=== PATIENT | female | born 1930 | race Caucasian/White ===

== ENCOUNTER 2016-11-05 09:23 | Inpatient (IN) | payer OTHER ==
[~2016-11-05] VITALS: Ht 165.1 cm; Wt 117.3 kg
[~2016-11-05 09:23] MED LIST: ARICEPT10 MG PO; K-DUR20 MEQ PO; KEPPRA250 MG PO; LOPRESSOR25 MG PO; NAMENDA10 MG PO; PLAVIX75 MG PO; PRINIVIL10 MG PO; WELCHOL625 MG PO
[2016-11-05] MEDS ORDERED: DONEPEZIL HCL10 MG PO (10:04)
[2016-11-05 10:06] LABS: HEMATOCRIT 32.5 % (36.0-46.0); MCH 27.3 PG (29.0-34.0); MCHC 30.5 G/DL (30.0-36.0); MCV 89.8 FL (83-99); MEAN PLAT.VOLUME 10.8 uM^3 (9.5-12.4); PLATELET COUNT 212 K/uL (156-360); RBC DIS.WIDTH-CV 13.1 % (11.8-14.6); RBC DIS.WIDTH-SD 42.9 % (39-53); RED BLOOD COUNT 3.62 M/uL (3.80-5.20); WHITE BLOOD COUNT 5.8 K/uL (4.1-10.2)
[2016-11-05 10:16] LABS: CHLORIDE 106 mEq/L (99-109); POTASSIUM 4.2 mEq/L (3.7-5.4); SODIUM 141 mEq/L (136-147)
[2016-11-05 10:18] LABS: GLUCOSE 122 mg/dL (70-99)
[2016-11-05 10:19] LABS: ANION GAP 10 MEQ/L (2-14)
[2016-11-05 10:20] LABS: TOTAL BILIRUBIN 0.3 mg/dL (0.0-1.0)
[2016-11-05 10:22] LABS: ALKALINE PHOSPHATASE 92 IU/L (3-129); GFR ESTIMATE (CALCULATED) 56 mL/min/
[2016-11-05 10:23] LABS: UREA NITROGEN (BUN) 23 mg/dL (9-23)
[2016-11-05 10:28] LABS: TROP-I INTERPRETATION NEGATIVE; TROPONIN-I < 0.01 ng/mL (0.0-0.30)
[2016-11-05] MEDS ORDERED: RASAGILINE MESYL1 MG PO (12:09)
[2016-11-05] MEDS ORDERED: CENTRUM SILVER1 EAC4 PO (12:10)
[2016-11-05] MEDS ORDERED: TYLENOL EXTRA500 MG PO (12:11)
[2016-11-05 14:15] VITALS: BP 120/60
[2016-11-05 16:46] VITALS: BP 137/63
[2016-11-05 19:44] VITALS: BP 99/52
[2016-11-06 06:22] LABS: EOSINOPHIL (%) 2.7 % (0-5); EOSINOPHIL COUNT 0.1 K/uL (0-0.3); HEMATOCRIT 27.1 % (36.0-46.0); IMMATURE GRANULOCYTE (%) 0.2 % (0.0-0.7); INSTRUMENT ABS NEUTROPHIL CT 2.9 K/uL; MCH 28.8 PG (29.0-34.0); MCHC 31.7 G/DL (30.0-36.0); MCV 90.6 FL (83-99); MEAN PLAT.VOLUME 11.2 uM^3 (9.5-12.4); MONOCYTE COUNT 0.4 K/uL (0-0.8); NEUTROPHIL (%) 65.7 % (45-76); NEUTROPHIL COUNT 2.9 K/uL (1.8-6.4); PLATELET COUNT 194 K/uL (156-360); RBC DIS.WIDTH-CV 13.3 % (11.8-14.6); RBC DIS.WIDTH-SD 43.8 % (39-53); RED BLOOD COUNT 2.99 M/uL (3.80-5.20); WHITE BLOOD COUNT 4.4 K/uL (4.1-10.2)
[2016-11-06 07:02] LABS: ALKALINE PHOSPHATASE 79 IU/L (3-129); ANION GAP 6 MEQ/L (2-14); CHLORIDE 104 MEQ/L (99-109); GFR ESTIMATE (CALCULATED) 38 mL/min/; GLUCOSE 102 mg/dL (70-99); IRON 20 MCG/DL (35-150); SAMPLE HEMOLYSIS CHECK 0; SAMPLE ICTERIC CHECK 0; SAMPLE LIPEMIA CHECK 0; SODIUM 139 MEQ/L (136-147); TOTAL BILIRUBIN 0.3 MG/DL (0.0-1.0); UREA NITROGEN (BUN) 33 mg/dL (9-23)
[2016-11-06 07:54] LABS: FERRITIN 219 NG/ML (10-291)
[2016-11-06 09:07] VITALS: BP 132/60
[2016-11-06 12:01] VITALS: BP 185/71
[2016-11-06 16:31] VITALS: BP 183/76
[2016-11-06 20:00] VITALS: BP 154/64
[2016-11-06 23:50] VITALS: BP 153/67
[2016-11-07] VITALS (8 sets, daily range): BP systolic 110–182; BP diastolic 60–80
[2016-11-07 09:52] LABS: HEMATOCRIT 34.2 % (36.0-46.0); MCH 27.3 PG (29.0-34.0); MCHC 30.7 G/DL (30.0-36.0); MCV 89.1 FL (83-99); PLATELET COUNT 206 K/uL (156-360); RBC DIS.WIDTH-CV 13.2 % (11.8-14.6); RBC DIS.WIDTH-SD 43.2 % (39-53); WHITE BLOOD COUNT 5.9 K/uL (4.1-10.2)
[2016-11-07 09:56] LABS: RED BLOOD COUNT 3.84 M/uL (3.80-5.20)
[2016-11-07 10:25] LABS: TROP-I INTERPRETATION NEGATIVE; TROPONIN-I 0.01 ng/mL (0.0-0.30)
[2016-11-07 10:32] LABS: ALKALINE PHOSPHATASE 90 IU/L (3-129); ANION GAP 7 MEQ/L (2-14); CHLORIDE 103 MEQ/L (99-109); GLUCOSE 112 mg/dL (70-99); SAMPLE HEMOLYSIS CHECK 0; SAMPLE ICTERIC CHECK 0; SAMPLE LIPEMIA CHECK 0; SODIUM 136 MEQ/L (136-147); UREA NITROGEN (BUN) 16 mg/dL (9-23)
[2016-11-07 10:37] LABS: GFR ESTIMATE (CALCULATED) > 59 mL/min/; TOTAL BILIRUBIN 0.5 MG/DL (0.0-1.0)
[2016-11-08 01:50] VITALS: BP 141/62
[2016-11-08 04:14] VITALS: BP 121/58
[2016-11-08 05:47] LABS: HEMATOCRIT 29.8 % (36.0-46.0); MCH 27.6 PG (29.0-34.0); MCHC 31.2 G/DL (30.0-36.0); MCV 88.4 FL (83-99); MEAN PLAT.VOLUME 11.3 uM^3 (9.5-12.4); PLATELET COUNT 199 K/uL (156-360); RBC DIS.WIDTH-CV 13.6 % (11.8-14.6); RBC DIS.WIDTH-SD 44.2 % (39-53); RED BLOOD COUNT 3.37 M/uL (3.80-5.20); WHITE BLOOD COUNT 5.6 K/uL (4.1-10.2)
[2016-11-08 07:58] LABS: ALKALINE PHOSPHATASE 81 IU/L (3-129); ANION GAP 10 MEQ/L (2-14); CHLORIDE 104 MEQ/L (99-109); GFR ESTIMATE (CALCULATED) 56 mL/min/; GLUCOSE 97 mg/dL (70-99); MAGNESIUM 1.4 mg/dl (1.3-2.7); POTASSIUM 3.9 MEQ/L (3.7-5.4); SAMPLE HEMOLYSIS CHECK 0; SAMPLE ICTERIC CHECK 0; SAMPLE LIPEMIA CHECK 0; SODIUM 135 MEQ/L (136-147); TOTAL BILIRUBIN 0.3 MG/DL (0.0-1.0); UREA NITROGEN (BUN) 19 mg/dL (9-23)
[2016-11-08 11:38] VITALS: BP 91/44
[2016-11-08 16:24] VITALS: BP 134/60
[2016-11-08 20:00] VITALS: BP 113/46
[2016-11-08 23:44] VITALS: BP 147/68
[2016-11-09 04:37] VITALS: BP 144/62
[2016-11-09 05:03] VITALS: BP 135/63
[2016-11-09 06:18] LABS: MCH 27.4 PG (29.0-34.0); MCHC 30.9 G/DL (30.0-36.0); MCV 88.6 FL (83-99); MEAN PLAT.VOLUME 11.1 uM^3 (9.5-12.4); PLATELET COUNT 211 K/uL (156-360); RBC DIS.WIDTH-CV 13.5 % (11.8-14.6); RBC DIS.WIDTH-SD 43.9 % (39-53); RED BLOOD COUNT 3.61 M/uL (3.80-5.20); WHITE BLOOD COUNT 6.3 K/uL (4.1-10.2)
[2016-11-09 06:43] LABS: ANION GAP 9 MEQ/L (2-14); CHLORIDE 103 MEQ/L (99-109); GFR ESTIMATE (CALCULATED) 50 mL/min/; GLUCOSE 91 mg/dL (70-99); SAMPLE HEMOLYSIS CHECK 0; SAMPLE ICTERIC CHECK 0; SAMPLE LIPEMIA CHECK 0; SODIUM 137 MEQ/L (136-147); UREA NITROGEN (BUN) 19 mg/dL (9-23)
[2016-11-09 12:38] VITALS: BP 140/65
[2016-11-09] MEDS ORDERED: LISINOPRIL10 MG PO (13:04)
[2016-11-09] MEDS ORDERED: ASPIR-LOW81 MG PO (13:04)
[2016-11-09] MEDS ORDERED: DOCUSATE SODIU100 MG PO (13:05)
[2016-11-09] MEDS ORDERED: MAG-OXIDE400 MG PO (13:05)
[2016-11-09] MEDS ORDERED: PANTOPRAZOLE SO40 MG PO (13:05)
== END 2016-11-09 16:11 | DRG 309 ==
LOC: EME 09:23 → EDOF 12:36 → 5WEST 12:36 → ENRESERV 12:53 → 5WEST 13:43 → ENRESERV 11-07 15:15 → CANRESERV 11-07 15:15 → ENRESERV 11-08 12:47 → CANRESERV 11-08 16:31 → ENRESERV 11-08 16:31 → 5WEST 11-09 16:11
PROVIDERS: Family Medicine; Internal Medicine; Internal Medicine Cardiovascular Disease; Nurse Practitioner Family
PROC: 30233N1 Transfusion of Nonautologous Red Blood Cells into Peripheral Vein, Percutaneous Approach (ICD-10-PCS; principal; 2016-11-06)
DX: I49.5 Sick sinus syndrome (principal); I44.2 Atrioventricular block, complete; N17.9 Acute kidney failure, unspecified; N39.0 Urinary tract infection, site not specified; I65.23 Occlusion and stenosis of bilateral carotid arteries; I95.1 Orthostatic hypotension; G20 Parkinson's disease; J06.9 Acute upper respiratory infection, unspecified; G30.9 Alzheimer's disease, unspecified; F02.80 Dementia in other diseases classified elsewhere, unspecified severity, without behavioral disturbance, psychotic disturbance, mood disturbance, and anxiety; D63.8 Anemia in other chronic diseases classified elsewhere; I10 Essential (primary) hypertension; I25.10 Atherosclerotic heart disease of native coronary artery without angina pectoris; R29.6 Repeated falls; M19.90 Unspecified osteoarthritis, unspecified site; Z91.81 History of falling; Z93.3 Colostomy status; Z85.038 Personal history of other malignant neoplasm of large intestine; Z86.73 Personal history of transient ischemic attack (TIA), and cerebral infarction without residual deficits; Z79.82 Long term (current) use of aspirin; Z79.02 Long term (current) use of antithrombotics/antiplatelets
CPT/HCPCS: 70450; 70498; 71020; 73560; 80048; 80053; 81003; 82272; 82607; 82728; 82746; 83540; 83735; 84439; 84443; 84466; 84484; 85025; 85027; 86850; 86900; 86901; 86920; 93005; 93306; 93880; 99281; 99285; G0378; J1650; J7030; P9016